=== PATIENT | female | born 1960 | race Caucasian/White ===

== ENCOUNTER → 2024-03-15 | Day surgery (SDC) | payer BC ==
--- NOTE | 2024-03-22 09:27 | USB ---
Risk Values: Lucinda 5 year model risk: 1.0%. NCI Lifetime model risk: 4.6%. Pathology Description: Location: 7 o'clock. Butterfly clip placed at aspiration site. No post mammo today per radiologist The ultrasound guided cyst aspiration procedure was explained to the patient. The risks, benefits, alternatives were discussed. An informed consent was then obtained. The patient was placed in supine positioning for imaging and for the procedure. The overlying skin was prepped with betadine and sterilely draped in usual sterile fashion. ml 1% lidocaine was used as anesthetic into the skin and deeper breast tissue up to area of concern in the left 7 o'clock breast, 4 cm from nipple. Under ultrasound guidance, an 12-gauge spinal needle was advanced into the cyst and aspiration yielded 2 mL of drainage. The fluid was labeled and sent for laboratory analysis. A clip was left in lesion. Good hemostasis was obtained with direct pressure. Postprocedure mammogram: The patient was transferred to mammography for physician ordered post procedure mammogram for clip placement verification. The clip is in the expected region of the biopsy. The patient tolerated the procedure well without any immediate complication. The patient was discharged to home in stable condition. Impression: Successful ultrasound guided cyst aspiration left 7:00 breast. Cytology pending. Pathology Results: Result: Benign, Benign cyst. Pathology and radiology were reviewed. Findings are concordant. LEFT BREAST, ASPIRATE: Clusters of bland apocrine lining cells in a background of degenerated cellular material and foamy histiocytes consistent with apocrine cyst/cyst contents. Overall Assessment: Benign Management: Diagnostic Mammogram of the left breast in 6 months. Electronically signed and approved by: Miguel Angel Lima M.D. Radiologis
== END ==
LOC: RADUSWWP 07:45
PROVIDERS: ATTEND Surgery
DX: R92.8 Other abnormal and inconclusive findings on diagnostic imaging of breast (principal)
CPT/HCPCS: 88305; 88173; 76942; 19000; A4648